=== PATIENT | male | born 1955 | race Caucasian/White ===

== ENCOUNTER 2019-07-25 13:43 | Emergency (ER) | payer OTHER, MEDICAID ==
[~2019-07-25] VITALS: Ht 182.9 cm; Wt 65.9 kg
[~2019-07-25 13:43] MED LIST: CLON-527 PO; CYCL-1 PO; DIVA-76 PO; HYDR12.522 PO; HYDR1TAB PO; LOSA25TA96 PO; NABU500T2 PO; PSEU30SY PO
[2019-07-25 13:44] VITALS: BP 142/79
[2019-07-25] MEDS ORDERED: DOXY100C2 PO (14:10)
[2019-07-25] MEDS ORDERED: ALBU8.5H8 IH (14:10)
[2019-07-25] MEDS ORDERED: PRED20TA PO (14:10)
== END 2019-07-25 14:12 | disposition home or self-care (01) ==
LOC: ER 13:44
DX: J44.1 Chronic obstructive pulmonary disease with (acute) exacerbation (principal); F17.200 Nicotine dependence, unspecified, uncomplicated; Z88.0 Allergy status to penicillin; Z79.899 Other long term (current) drug therapy
CPT/HCPCS: 99283

== ENCOUNTER 2019-08-29 16:44 | Inpatient (IN) | payer OTHER, MEDICAID ==
[~2019-08-29] VITALS: Ht 182.9 cm; Wt 62.7 kg
[~2019-08-29 16:44] MED LIST changes: +ALBU8.5H8 IH
[2019-08-29 17:41] LABS: BASOPHILS % (AUTO) 0.3 % (0-1); EOSINOPHILS % (AUTO) 0 % (0-6); HEMATOCRIT 34.9 % (42.0-52.0); HEMOGLOBIN 11.2 g/dl (14.0-17.9); LYMPHOCYTES # (AUTO) 0.8 X10'3 (1.1-4.8); LYMPHOCYTES % (AUTO) 5.7 % (21-51); MEAN CORPUSCULAR HEMOGLOBIN 25.2 PG (27.0-31.0); MEAN CORPUSCULAR HGB CONC 32.3 g/dL (33.0-36.5); MEAN CORPUSCULAR VOLUME 78.1 FL (78-98); MONOCYTES # (AUTO) 0.6 X10'3 (0-0.9); NEUTROPHILS # (AUTO) 13.4 X10'3 (1.8-7.7); PLATELET COUNT 373 X10'3 (140-440); RED BLOOD COUNT 4.47 X10'6 (4.70-6.10); WHITE BLOOD COUNT 14.9 X10'3 (4.5-11.0)
[2019-08-29 17:45] LABS: ALANINE AMINOTRANSFERASE 16 U/L (12-78); ALBUMIN 3.4 G/DL (3.4-5.0); ALBUMIN/GLOBULIN RATIO 0.8 (1.1-1.5); ALKALINE PHOSPHATASE 113 IU/L (46-116); ANION GAP 6 (8-16); ASPARTATE AMINO TRANSFERASE 16 U/L (10-37); BILIRUBIN,TOTAL 0.3 MG/DL (0.1-1.0); BLOOD UREA NITROGEN 22 MG/DL (7-18); BUN/CREATININE RATIO 15.3 (5.4-32.0); CALCIUM 9.4 MG/DL (8.5-10.1); CHLORIDE 97 MMOL/L (99-107); CREATININE 1.44 MG/DL (0.60-1.10); GLUCOSE 154 MG/DL (70-104); POTASSIUM 3.2 MMOL/L (3.5-5.1); SODIUM 141 MMOL/L (135-145); TOTAL CARBON DIOXIDE 37.8 MMOL/L (24-32); TOTAL PROTEIN 7.6 G/DL (6.4-8.2); eGFR 49 ML/MIN
[2019-08-29] MEDS ORDERED: azithromycin/NS 500mg/250ml 250 ML IV ONE (19:50)
[2019-08-29] MEDS ORDERED: normal saline 1000ML IV soln IVB ONE (19:50)
[2019-08-29] MEDS ORDERED: CefTRIAXone/D5W-Rocephin 1gm 50 ML IV ONE (19:50)
--- NOTE | 2019-08-29 20:04 | NUR ---
LABS ORDERED AND PT REFUSING TO HAVE BLOOD DRAWN. YAYA BATES THEN TALKING TO PT AND PT NOW AGREEING TO THIS.
--- NOTE | 2019-08-29 20:18 | NUR ---
PT REPORTS HE RECENTLY HAD AN EPISODE OF DIZZINES SIMIALR TO THIS CURRENT EXPERIENCE. BP 161/91, OTHERWISE VSS. JUST STARTED 1 L NS, LABS COLLECTED, ROCEFIN RUNNING AND AZITHROMYCIN IVPB TO INFUSED WHEN ITS DONE. PT UPDATED NEED FOR URINE. REPORTS NAUSEA. YAYA BATES TO ORDER ANTIEMETIC.
--- NOTE | 2019-08-29 20:41 | NUR ---
PT HAD REPORTED NAUSA AND JUST SAT UP AND HAD EMESIS 300 CC'S , WATERY DARK BROWN REDDISH. YAYA PANCHAL AT [facility] TO EVALUATE. GASTROCULT POSITIVE. PT REPROTS NO HISTORY OF THIS AND NO HC OF ULCERS. REPROTS LBM ABOUT 3 DAYS AGO AND NORMAL.
[2019-08-29] MEDS ORDERED: ondansetron/PF 4mg/2ml inj IV ONE (20:45)
[2019-08-29] MEDS ORDERED: pantoprazole 40 MG vial IV ONE (20:55)
[2019-08-29] MEDS ORDERED: pantoprazole 40MG/NS 100ML BAG 100 ML IV ONE (21:00)
--- NOTE | 2019-08-29 21:13 | NUR ---
GIVEN ZOFRAN AND PROTONIX 40 MG IVPUSH. WILL START PROTONIX GTT SHORTLY. PT NOW AWAITING HOSPITALIST.
[2019-08-29 21:14] LABS: PARTIAL THROMBOPLASTIN TIME 26 SECONDS (22-32)
[2019-08-29] MEDS ORDERED: PALI234D (21:19)
[2019-08-29] MEDS ORDERED: octreotide inj. 1,250 MCG in normal saline 250ml IV soln 250 ML IV ONE (22:50)
[2019-08-29] MEDS ORDERED: famotidine/PF 10 mg/ml inj IV ONE (22:50)
[2019-08-29] MEDS ORDERED: normal saline 1000ML IV soln IV ONE (22:50)
--- NOTE | 2019-08-29 23:14 | NUR ---
DR FRAZIER AT BEDSIDE FOR ADMISSION . HE REPORTS THAT YAYA BATES TO CONSULT WITH THE SURGON RE CT FINDINGS. CURRENT VSS. PROTONIX GTT, OCTREOTIDE GTT AND NS BULUS INFUSING (PT TO HAVE TOTAL OF 3 LITERS NS BOLUS. PT REPROTS STILL UNABLE TO VOID.
[2019-08-30] VITALS (7 sets, daily range): BP systolic 139–168; BP diastolic 72–85
--- NOTE | 2019-08-30 00:09 | NUR ---
Pt will need to be transferred to another facility. In the process of trying to get pt accepted at this time.
--- NOTE | 2019-08-30 00:52 | NUR ---
cCvid swab ordered as dr. coon reports that the accepting MD for Transfer is requiring this prior to accepting Pt. Swab collected and hepa filter running in room and enhanced precautions now in place.
[2019-08-30 01:38] LABS: BASOPHILS % (AUTO) 0.3 % (0-1); EOSINOPHILS % (AUTO) 0 % (0-6); HEMATOCRIT 28.7 % (42.0-52.0); HEMOGLOBIN 9.3 g/dl (14.0-17.9); LYMPHOCYTES % (AUTO) 13.5 % (21-51); MEAN CORPUSCULAR HEMOGLOBIN 25.4 PG (27.0-31.0); MEAN CORPUSCULAR HGB CONC 32.5 g/dL (33.0-36.5); MEAN CORPUSCULAR VOLUME 78.4 FL (78-98); MEAN PLATELET VOLUME 7.9 FL (7.4-10.4); MONOCYTES # (AUTO) 1.2 X10'3 (0-0.9); MONOCYTES % (AUTO) 7.6 % (2-12); NEUTROPHILS # (AUTO) 11.9 X10'3 (1.8-7.7); NEUTROPHILS % (AUTO) 78.6 % (42-75); PLATELET COUNT 292 X10'3 (140-440); RED BLOOD COUNT 3.67 X10'6 (4.70-6.10); RED CELL DISTRIBUTION WIDTH 15.9 % (11.5-14.5); WHITE BLOOD COUNT 15.1 X10'3 (4.5-11.0)
--- NOTE | 2019-08-30 02:34 | NUR ---
Awaiting acceptance for transfer. Pt continues to sleep, lying on his left side and reports he is more comfortable this way.
[2019-08-30] MEDS: pantoprazole 40MG/NS 100ML BAG 100 ML IV SCH ×4 (04:00→20:02)
--- NOTE | 2019-08-30 05:00 | NUR ---
PT MOVED FROM BED 9 TO BED 14 IN ER AND PLACED ON HOSPITAL BED. PER DR. COTA, HE WILL CONSULT OUR GI MD COTTAGE MASTER.
--- NOTE | 2019-08-30 07:35 | NUR ---
Patient to GI lab at this time, no signs of distress noted.
[2019-08-30] MEDS ORDERED: LIDOcaine Viscous 15ml cup ONE (07:41)
[2019-08-30] MEDS ORDERED: fentaNYL/PF 50MCG/1 ML 2ML syringe ONE (07:41)
[2019-08-30] MEDS ORDERED: MIDAZolam 5mg/5ml vial ONE (07:41)
--- NOTE | 2019-08-30 09:52 | NUR ---
Patient back from GI lab at this time. No signs of distress noted, Dr Canada aware and received report from RN.
[2019-08-30 10:41] LABS: BASOPHILS # (AUTO) 0.1 X10'3 (0-0.2); BASOPHILS % (AUTO) 0.6 % (0-1); EOSINOPHILS % (AUTO) 0.4 % (0-6); HEMATOCRIT 27.2 % (42.0-52.0); HEMOGLOBIN 8.7 g/dl (14.0-17.9); LYMPHOCYTES # (AUTO) 1.7 X10'3 (1.1-4.8); LYMPHOCYTES % (AUTO) 16.7 % (21-51); MEAN CORPUSCULAR HEMOGLOBIN 25.2 PG (27.0-31.0); MEAN CORPUSCULAR HGB CONC 31.8 g/dL (33.0-36.5); MEAN CORPUSCULAR VOLUME 79.1 FL (78-98); MEAN PLATELET VOLUME 8.2 FL (7.4-10.4); MONOCYTES # (AUTO) 0.7 X10'3 (0-0.9); NEUTROPHILS # (AUTO) 7.8 X10'3 (1.8-7.7); NEUTROPHILS % (AUTO) 75.3 % (42-75); PLATELET COUNT 242 X10'3 (140-440); RED BLOOD COUNT 3.44 X10'6 (4.70-6.10); RED CELL DISTRIBUTION WIDTH 15.9 % (11.5-14.5); WHITE BLOOD COUNT 10.4 X10'3 (4.5-11.0)
[2019-08-30] MEDS ORDERED: mag hydrox/Alum hydrox/simeth 30ml oral suspension PO PRN (11:10)
[2019-08-30] MEDS ORDERED: HYDROcodone/acetaminophen 5mg/325mg tablet PO PRN (11:10)
[2019-08-30] MEDS ORDERED: morphine 2 MG/ML inj. syringe IV PRN ×2 (11:10)
[2019-08-30] MEDS ORDERED: acetaminophen 325mg tablet PO PRN ×2 (11:10)
[2019-08-30] MEDS ORDERED: ondansetron/PF 4mg/2ml inj IV PRN (11:10)
[2019-08-30] MEDS ORDERED: magnesium hydroxide 30ml (MOM) UD suspension PO PRN (11:10)
[2019-08-30] MEDS ORDERED: HYDROcodone/acetaminophen 10/325mg tab PO PRN (11:10)
[2019-08-30] MEDS: normal saline 1000ml 1,000 ML IV SCH ×2 (11:37→20:02)
[2019-08-30 14:39] LABS: CLARITY,URINE CLEAR (Clear); COLOR,URINE YELLOW (Yellow); GLUCOSE, URINE NEGATIVE (Neg); KETONES,URINE NEGATIVE (Neg); LEUKOCYTE ESTERASE ,URINE NEGATIVE (Neg); NITRITES, URINE NEGATIVE (Neg); OCCULT BLOOD,URINE NEGATIVE (Neg); PROTEIN,URINE NEGATIVE (Neg); UA COLLECTION TYPE VOIDED
[2019-08-30 14:54] LABS: URINE AMPHETAMINE SCREEN POSITIVE (Neg); URINE BARBITUATE SCREEN NEGATIVE (Neg); URINE BENZODIAZEPINES SCREEN POSITIVE (Neg); URINE CANNABINOID SCREEN NEGATIVE (Neg); URINE COCAINE SCREEN NEGATIVE (Neg); URINE METHADONE SCREEN NEGATIVE (Neg); URINE OPIATE SCREEN NEGATIVE (Neg); URINE PHENCYCLIDINE SCREEN NEGATIVE (Neg)
--- NOTE | 2019-08-30 18:33 | NUR ---
Problems reprioritized. Patient report given, questions answered & plan of care reviewed with Tiffanie HAND.
--- NOTE | 2019-08-30 22:41 | NUR ---
pt refused orthostatics Addendum: 08/30/19 at 2241 by Tiffanie Arroyo RN Amended: Links added.
--- NOTE | 2019-08-30 23:08 | NUR ---
notified dr. dawkins pt refused to have 2230 labs drawn.
[2019-08-31] MEDS: pantoprazole 40MG/NS 100ML BAG 100 ML IV SCH ×2 (00:57→05:20)
[2019-08-31 06:00] VITALS: BP 119/48
--- NOTE | 2019-08-31 06:17 | NUR ---
Problems reprioritized. Patient report given, questions answered & plan of care reviewed with YAZAN Freeman. Addendum: 08/31/19 at 0617 by Tiffanie Arroyo RN Amended: Links added.
--- NOTE | 2019-08-31 06:29 | NUR ---
Patient in room ORTHO 4024. I have received report from Tiffanie HAND and had the opportunity to ask questions and assume patient care.
[2019-08-31 09:21] LABS: BASOPHILS # (AUTO) 0.1 X10'3 (0-0.2); BASOPHILS % (AUTO) 0.7 % (0-1); EOSINOPHILS # (AUTO) 0.1 X10'3 (0-0.9); EOSINOPHILS % (AUTO) 1.6 % (0-6); HEMATOCRIT 26.9 % (42.0-52.0); HEMOGLOBIN 8.6 g/dl (14.0-17.9); LYMPHOCYTES # (AUTO) 1.7 X10'3 (1.1-4.8); LYMPHOCYTES % (AUTO) 21.5 % (21-51); MEAN CORPUSCULAR HEMOGLOBIN 25.2 PG (27.0-31.0); MEAN CORPUSCULAR HGB CONC 31.8 g/dL (33.0-36.5); MEAN CORPUSCULAR VOLUME 79.4 FL (78-98); MEAN PLATELET VOLUME 8.3 FL (7.4-10.4); MONOCYTES # (AUTO) 0.7 X10'3 (0-0.9); MONOCYTES % (AUTO) 9.2 % (2-12); NEUTROPHILS # (AUTO) 5.4 X10'3 (1.8-7.7); PLATELET COUNT 210 X10'3 (140-440); RED BLOOD COUNT 3.39 X10'6 (4.70-6.10)
[2019-08-31] MEDS: normal saline 1000ml 1,000 ML IV SCH (09:39)
[2019-08-31] MEDS ORDERED: PANT-47 PO (09:40)
[2019-08-31 10:00] VITALS: BP 117/54
== END 2019-08-31 10:50 | disposition home or self-care (01) | DRG 381 ==
LOC: ER 16:44 → ED HOLD 08-30 11:07 → ORTHO 4S 08-30 14:10
PROVIDERS: ADMIT Internal Medicine; ATTEND Internal Medicine
PROC: 0DB48ZX Excision of Esophagogastric Junction, Via Natural or Artificial Opening Endoscopic, Diagnostic (ICD-10-PCS; principal; 2019-08-30)
PROC: 0DB68ZX Excision of Stomach, Via Natural or Artificial Opening Endoscopic, Diagnostic (ICD-10-PCS; 2019-08-30)
PROC: 0DB58ZX Excision of Esophagus, Via Natural or Artificial Opening Endoscopic, Diagnostic (ICD-10-PCS; 2019-08-30)
DX: K22.11 Ulcer of esophagus with bleeding (principal); D62 Acute posthemorrhagic anemia; K29.71 Gastritis, unspecified, with bleeding; K44.9 Diaphragmatic hernia without obstruction or gangrene; Z20.828 Contact with and (suspected) exposure to other viral communicable diseases; F17.210 Nicotine dependence, cigarettes, uncomplicated; F20.9 Schizophrenia, unspecified; J44.9 Chronic obstructive pulmonary disease, unspecified; K21.0 Gastro-esophageal reflux disease with esophagitis; Z88.0 Allergy status to penicillin
CPT/HCPCS: 36415; 43239; 70450; 71045; 71250; 74176; 80053; 80305; 81003; 82948; 84484; 85025; 85610; 85730; 86885; 86900; 86901; 87081; 87635; 93005; 96365; 96367; 96375; 99152; 99153; 99285; C9113; G0378; J0456; J0696; J2250; J2354; J2405; J3010; J3490; J7030; J7040; J7050